=== PATIENT | female | born 1930 | race Caucasian/White ===

== ENCOUNTER 2018-04-29 12:26 | Inpatient (IN) | payer MEDICARE, BC ==
[~2018-04-29] VITALS: Ht 167.6 cm; Wt 89.2 kg
--- NOTE | 2018-04-29 12:44 | NUR ---
PT KADI VOGT FROM [facility], AFTER SOMEONE NOTICED PT WAS NOT AT BREAKFAST. PT REPORTS GETTING UP THIS MORNING, GOING TO RESTROOM, THEN KNEES BECAME WEAK AND PT LOWERED SELF TO FLOOR AND WAS UNABLE TO GET UP. A&OX4, FOLLOWING INSTRUCTIONS. CONNECTED TO ALL MONITORING, VSS. IV PLACED, LABS DRAWN. EKG DONE, MD AWARE. MARYA ALFARO TO BEDSIDE FOR ASSESSMENT. ORDERS RECEIVED. CALL LIGHT WITHIN REACH. AWAITING TESTING AND RESULTS AT THIS TIME
[2018-04-29 12:50] LABS: MEAN CORPUSCULAR HEMOGLOBIN 29.6 pg (27.0-34.8); MEAN CORPUSCULAR HGB CONC 33.2 g/dL (32.4-35.8); MEAN CORPUSCULAR VOLUME 89.1 fL (80-100); MEAN PLATELET VOLUME 7.1 fL (7.4-10.4); PLATELET COUNT 289 x10^3/uL (130-400); RED BLOOD COUNT 4.04 x10^6/uL (3.82-5.3); RED CELL DISTRIBUTION WIDTH 15.1 % (9.6-15.2)
[2018-04-29 13:00] LABS: ALBUMIN 2.9 g/dL (3.4-5.0); ANION GAP 8 mmol/L (5-15); CALCIUM 8.6 mg/dL (8.5-10.1); CHLORIDE 103 mmol/L (98-107); CREATININE 1.07 mg/dL (0.55-1.02)
[2018-04-29 13:04] LABS: TROPONIN I < 0.015 ng/mL (0.000-0.045)
--- NOTE | 2018-04-29 13:13 | NUR ---
PT FOUND TO BE INCONTINENT OF STOOL AND URINE, PT STATES IT IS D/T STOOL SOFTENERS GIVEN TO HER BY FACILITY. PT CLEANED UP, LINENS CHANGED. PERIAREA VERY RED AND IRRITATED, NO LESIONS NOTED, SMALL BRUISE TO LOWER BACK. STRAIGHT CATH UA COLLECTED AND SENT TO LAB. CALL KIM MARTINEZ. AWAITING TESTING RESULTS AT THIS TIME
[2018-04-29 13:18] LABS: BASOPHILS # (AUTO) 0.01 x10^3/uL (0-0.1); BASOPHILS % (AUTO) 0 % (0-1); EOSINOPHILS # (AUTO) 0.01 x10^3/uL (0-0.4); EOSINOPHILS % (AUTO) 0 % (1-7); LYMPHOCYTES # (AUTO) 1.11 x10^3/uL (1-3.4); LYMPHOCYTES % (AUTO) 7 % (22-44); MD SCAN; MONOCYTES # (AUTO) 0.76 x10^3/uL (0.2-0.8); MONOCYTES % (AUTO) 5 % (2-9); NEUTROPHILS # (AUTO) 14.01 x10^3/uL (1.8-6.8); NEUTROPHILS % (AUTO) 88 % (42-75)
[2018-04-29] MEDS ORDERED: DULO60CA7 PO (13:26)
[2018-04-29] MEDS ORDERED: MORP15TA3 PO (13:26)
[2018-04-29] MEDS ORDERED: TEMA30CA PO (13:26)
[2018-04-29] MEDS ORDERED: DILT-8 PO (13:26)
[2018-04-29] MEDS ORDERED: MAGN400T26 PO (13:26)
[2018-04-29] MEDS ORDERED: GABA600T2 PO (13:26)
[2018-04-29 13:33] LABS: CULTURE INDICATED? YES; MICROSCOPIC INDICATED
--- NOTE | 2018-04-29 13:35 | NUR ---
ALL RESULTS BACK AT THIS TIME, CHART UP FOR RECHECK
--- NOTE | 2018-04-29 14:28 | NUR ---
NEW ORDERS RECEIVED FOR BLOOD CULTURES, LABS AND ABX. PT TO BE ADMITTED TO [facility]
[2018-04-29] MEDS ORDERED: SODIUM CHLORIDE FLUSH 10ML SYR IVF ONE (14:30)
[2018-04-29] MEDS ORDERED: CEFTRIAXONE 1,000 MG in SODIUM CHLORIDE 0.9% 50 ML IVPB ONE (14:30)
--- NOTE | 2018-04-29 14:44 | NUR ---
HOSPITALIST AT BEDSIDE FOR ADMIT
[2018-04-29] MEDS: SODIUM CHLORIDE 0.9% 1,000 ML IV SCH ×6 (14:54→23:00)
[2018-04-29] MEDS ORDERED: CEFTRIAXONE PMX 1GM/50ML 50 ML ONE (14:57)
[2018-04-29] MEDS ORDERED: LABETALOL 5MG/ML, 20ML IVPush PRN (15:00)
[2018-04-29] MEDS ORDERED: morphine SULFATE 10 MG/ML, 1ML IVPush PRN (15:00)
[2018-04-29] MEDS ORDERED: ACETAMINOPHEN 325 MG TABLET PO PRN (15:00)
[2018-04-29] MEDS ORDERED: ONDANSETRON 2MG/ML, 2ML IVPush PRN (15:00)
--- NOTE | 2018-04-29 15:01 | NUR ---
ABX STARTED PER JUN, BLOOD CULTURES DRAWN PRIOR TO ADMIN
[2018-04-29] MEDS: CEFTRIAXONE PMX 1GM/50ML 50 ML IV SCH (15:07)
[2018-04-29] MEDS ORDERED: MORPHINE SULFATE 4 MG/ML, 1ML ONE (15:19)
--- NOTE | 2018-04-29 15:24 | NUR ---
PT SLEEPING INTERMITTENTLY IN BED. VSS. STATES IN 8 PAIN THROUGHOUT BACK, PT MEDICATED PER JUN. AWAITING ROOM ASSIGNMENT ON FLOOR AT THIS TIME
[2018-04-29] MEDS ORDERED: MORPHINE SULFATE 4 MG/ML, 1ML IVPush PRN (15:47)
--- NOTE | 2018-04-29 15:53 | NUR ---
REPORT GIVEN TO HOANG RN, PT READY FOR TRANSPORT UP TO FLOOR
[2018-04-29] MEDS: MAGNESIUM OXIDE 400 MG TABLET PO SCH ×3 (16:00→21:07)
[2018-04-29 16:33] VITALS: BP 144/76
[2018-04-29] MEDS: HEPARIN 5,000 UNITS/ML, 1ML SQ SCH (17:08)
[2018-04-29] MEDS: GABAPENTIN 300 MG CAPSULE PO SCH ×2 (17:09→21:07)
[2018-04-29 17:46] LABS: TROPONIN I < 0.015 ng/mL (0.000-0.045)
[2018-04-29] MEDS: morphine SULFATE 15 MG TAB.IR PO PRN (18:12)
[2018-04-29] MEDS ORDERED: morphine SULFATE 15 MG TAB.IR PO PRN (18:30)
[2018-04-29 19:33] VITALS: BP 136/61
[2018-04-29] MEDS: MORPHINE SULFATE 4 MG/ML, 1ML IVPush PRN (21:07)
[2018-04-29 23:15] LABS: TROPONIN I < 0.015 ng/mL (0.000-0.045)
[2018-04-30] MEDS: SODIUM CHLORIDE 0.9% 1,000 ML IV SCH ×3 (01:00→14:17)
[2018-04-30] MEDS: HEPARIN 5,000 UNITS/ML, 1ML SQ SCH (01:34)
[2018-04-30] MEDS: MORPHINE SULFATE 4 MG/ML, 1ML IVPush PRN (01:38)
[2018-04-30 02:13] VITALS: BP 157/75
[2018-04-30] MEDS: morphine SULFATE 15 MG TAB.IR PO PRN (02:49)
[2018-04-30 04:48] LABS: MEAN CORPUSCULAR HEMOGLOBIN 29.9 pg (27.0-34.8); MEAN CORPUSCULAR HGB CONC 33.6 g/dL (32.4-35.8); MEAN CORPUSCULAR VOLUME 88.9 fL (80-100); MEAN PLATELET VOLUME 7.2 fL (7.4-10.4); PLATELET COUNT 243 x10^3/uL (130-400); RED BLOOD COUNT 3.58 x10^6/uL (3.82-5.3)
[2018-04-30 04:59] LABS: ALBUMIN 2.2 g/dL (3.4-5.0); CALCIUM 7.7 mg/dL (8.5-10.1); CHLORIDE 107 mmol/L (98-107)
[2018-04-30 05:04] LABS: ALANINE AMINOTRANSFERASE 36 U/L (12-78); ALKALINE PHOSPHATASE 80 U/L (45-117); ANION GAP 7 mmol/L (5-15); BILIRUBIN,TOTAL 0.8 mg/dL (0.2-1.0); CREATININE 0.68 mg/dL (0.55-1.02); TOTAL PROTEIN 5.9 g/dL (6.4-8.2)
[2018-04-30] MEDS: MAGNESIUM OXIDE 400 MG TABLET PO SCH ×4 (06:00→21:11)
[2018-04-30 06:03] LABS: BASOPHILS # (AUTO) 0.03 x10^3/uL (0-0.1); BASOPHILS % (AUTO) 0 % (0-1); EOSINOPHILS # (AUTO) 0.03 x10^3/uL (0-0.4); EOSINOPHILS % (AUTO) 0 % (1-7); LYMPHOCYTES # (AUTO) 1.15 x10^3/uL (1-3.4); LYMPHOCYTES % (AUTO) 8 % (22-44); MD SCAN; MONOCYTES # (AUTO) 0.84 x10^3/uL (0.2-0.8); MONOCYTES % (AUTO) 6 % (2-9); NEUTROPHILS % (AUTO) 85 % (42-75)
[2018-04-30 06:39] VITALS: BP 133/78
[2018-04-30] MEDS: GABAPENTIN 300 MG CAPSULE PO SCH ×3 (08:22→21:11)
[2018-04-30] MEDS: DULOXETINE 30 MG CAPSULE.DR PO SCH (08:22)
[2018-04-30] MEDS: ENOXAPARIN 40 MG/0.4 ML SQ SCH (08:22)
[2018-04-30 12:22] VITALS: BP 140/65
[2018-04-30] MEDS: CEFTRIAXONE PMX 1GM/50ML 50 ML IV SCH (14:17)
[2018-04-30 20:00] VITALS: BP 149/67
[2018-05-01 01:32] VITALS: BP 145/71
[2018-05-01] MEDS: SODIUM CHLORIDE 0.9% 1,000 ML IV SCH (05:29)
[2018-05-01] MEDS: MAGNESIUM OXIDE 400 MG TABLET PO SCH ×2 (06:00→11:00)
[2018-05-01 06:03] LABS: BASOPHILS % (AUTO) 0 % (0-1); EOSINOPHILS # (AUTO) 0.11 x10^3/uL (0-0.4); EOSINOPHILS % (AUTO) 1 % (1-7); LYMPHOCYTES # (AUTO) 1.06 x10^3/uL (1-3.4); LYMPHOCYTES % (AUTO) 12 % (22-44); MD NO; MEAN CORPUSCULAR HEMOGLOBIN 29.4 pg (27.0-34.8); MEAN CORPUSCULAR HGB CONC 32.8 g/dL (32.4-35.8); MEAN CORPUSCULAR VOLUME 89.5 fL (80-100); MEAN PLATELET VOLUME 7.4 fL (7.4-10.4); MONOCYTES # (AUTO) 0.74 x10^3/uL (0.2-0.8); MONOCYTES % (AUTO) 8 % (2-9); NEUTROPHILS # (AUTO) 7.36 x10^3/uL (1.8-6.8); NEUTROPHILS % (AUTO) 79 % (42-75); PLATELET COUNT 251 x10^3/uL (130-400); RED CELL DISTRIBUTION WIDTH 15.1 % (9.6-15.2)
[2018-05-01 06:14] LABS: CHLORIDE 109 mmol/L (98-107)
[2018-05-01 06:26] LABS: ALANINE AMINOTRANSFERASE 32 U/L (12-78); ALBUMIN 2.2 g/dL (3.4-5.0); ALKALINE PHOSPHATASE 86 U/L (45-117); ANION GAP 7 mmol/L (5-15); BILIRUBIN,TOTAL 0.4 mg/dL (0.2-1.0); CALCIUM 8.1 mg/dL (8.5-10.1)
[2018-05-01 06:37] VITALS: BP 148/70
[2018-05-01] MEDS ORDERED: POTASSIUM CHLORIDE 20 MEQ TAB.ER.PRT PO ONE (07:30)
[2018-05-01] MEDS: DULOXETINE 30 MG CAPSULE.DR PO SCH (08:19)
[2018-05-01] MEDS: ENOXAPARIN 40 MG/0.4 ML SQ SCH (08:20)
[2018-05-01] MEDS: GABAPENTIN 300 MG CAPSULE PO SCH (08:20)
[2018-05-01] MEDS ORDERED: CEFDINIR 300 MG CAPSULE PO SCH (09:00)
[2018-05-01 11:13] LABS: RAPID INFLUENZA A Negative (Negative); RAPID INFLUENZA B Negative (Negative)
[2018-05-01 12:11] VITALS: BP 142/75
[2018-05-01] MEDS ORDERED: CEFD300C37 PO ×2 (12:18→14:12)
[2018-05-01] MEDS ORDERED: POTA20TA6 PO (14:12)
[2018-05-01 15:11] VITALS: BP 151/75
== END 2018-05-01 15:23 | DRG 871 ==
LOC: ED 15:19 → 4NOR 16:26
PROVIDERS: ADMIT Hospitalist; ATTEND Hospitalist
PROC: 0T9B70Z Drainage of Bladder with Drainage Device, Via Natural or Artificial Opening (ICD-10-PCS; principal; 2018-04-29)
DX: A41.9 Sepsis, unspecified organism (principal); N17.0 Acute kidney failure with tubular necrosis; E44.1 Mild protein-calorie malnutrition; N30.01 Acute cystitis with hematuria; R73.9 Hyperglycemia, unspecified; D64.9 Anemia, unspecified; E78.5 Hyperlipidemia, unspecified; G89.4 Chronic pain syndrome; K21.9 Gastro-esophageal reflux disease without esophagitis; M79.7 Fibromyalgia; Z66 Do not resuscitate; Z96.659 Presence of unspecified artificial knee joint; Z98.49 Cataract extraction status, unspecified eye; Z90.49 Acquired absence of other specified parts of digestive tract; Z68.31 Body mass index [BMI] 31.0-31.9, adult
CPT/HCPCS: 36415; 71045; 80048; 80053; 81001; 82040; 83605; 83735; 83880; 84145; 84484; 85025; 87040; 87077; 87086; 87186; 87400; 93005; G0378; J0696; J1644; J1650; J2270; J7030